=== PATIENT | male | born 1975 | race Caucasian/White ===

== ENCOUNTER 2023-08-14 06:54 | Day surgery (SDC) | payer BC ==
[2023-08-14] MEDS ORDERED: Midazolam 1 MG/ML 2 ML SDV IV ONE (06:55)
[2023-08-14] MEDS ORDERED: fentaNYL 100 MCG/2 ML SDV IV ONE (06:55)
[2023-08-14] MEDS ORDERED: Propofol 200 MG/20 ML SDV IV ONE (06:55)
[2023-08-14] MEDS ORDERED: Sodium Chloride 0.9% 10 ML Syringe FLUSH PRN (07:00)
[2023-08-14] MEDS ORDERED: Lactated Ringers 1,000 ML IV SCH (07:00)
[2023-08-14] MEDS ORDERED: Simethicone Drops 40 MG/0.6 ML 30 ML Bottle PO ONE (08:17)
== END 2023-08-14 09:40 | disposition home or self-care (01) ==
LOC: FB.SDS 06:54
PROVIDERS: ATTEND Surgery
DX: Z12.11 Encounter for screening for malignant neoplasm of colon (principal); K21.9 Gastro-esophageal reflux disease without esophagitis; Z98.890 Other specified postprocedural states; Z79.899 Other long term (current) drug therapy; Z88.6 Allergy status to analgesic agent; Z88.8 Allergy status to other drugs, medicaments and biological substances
CPT/HCPCS: A9270-GY; J2250; J2704; J3010; J7120